=== PATIENT | male | born 1985 | race African-American/Black ===

== ENCOUNTER 2016-05-22 21:14 | Emergency (ER) | payer SELFPAY ==
[2016-05-22 21:23] VITALS: BP 131/59
[2016-05-22] MEDS ORDERED: IV NORMAL SALINE 1000ML BAG 1,000 ML IV ONE (21:45)
[2016-05-22] MEDS ORDERED: DICYCLOMINE HCL 10 MG CAPSULE PO ONE (21:45)
[2016-05-22] MEDS ORDERED: ONDANSETRON PF 4 MG/2 ML VIAL. IV ONE (21:45)
[2016-05-22] MEDS ORDERED: FAMOTIDINE 20 MG/2 ML VIAL IVP ONE (21:45)
[2016-05-22] MEDS ORDERED: MORPHINE SULFATE 10 MG/ML VIAL. IV ONE (21:45)
[2016-05-22 21:46] LABS: BILIRUBIN,URINE SMALL (NEG); GLUCOSE,URINE NEGATIVE (NEG); NITRITE,URINE NEGATIVE (NEG); PROTEIN,URINE NEGATIVE (NEG-TRACE); UROBILINOGEN,URINE 0.2 mg/dL (0.2 mg/dL)
--- NOTE | 2016-05-22 21:53 | PHYS DOC ---
Past Medical History Past Medical History: Other Additional Past Medical Histor: PNEUMOTHORAX Past Surgical History: Other Additional Past Surgical Histo: "Lung closed had a tube."Pt had chest tube 3- 4mos ago,spontaneous pneumo. Alcohol Use: Occasionally Drug Use: Marijuana Adult General Chief Complaint Chief Complaint: ABDOMINAL PAIN HPI HPI Patient is a 30 year old male with history of pneumothorax who presents today with multiple complaints. Patient is complaining of abdominal cramping generalized in nature, nausea vomiting and diarrhea that began this morning. He is also complaining of bilateral low back pain and believes he could have a collapsed lung because the last time he had similar pain he had a collapsed lung that had occurred spontaneously. Patient denies any history of smoking. Denies any injuries. Denies any hematemesis or melena. Denies any fever Review of Systems Review of Systems Constitutional: Denies fever or chills [] Eyes: Denies change in visual acuity, redness, or eye pain [] HENT: Denies nasal congestion or sore throat [] Respiratory: Denies cough or shortness of breath [] Cardiovascular: No additional information not addressed in HPI [] GI: Abdominal cramping, nausea, vomiting,diarrhea [] : Denies dysuria or hematuria [] Musculoskeletal: back pain Integument: Denies rash or skin lesions [] Neurologic: Denies headache, focal weakness or sensory changes [] Endocrine: Denies polyuria or polydipsia [] Current Medications Current Medications Current Medications Medications (Trade) Dose Ordered Sig/Eric Start Time Stop Time Status Last Admin Dose Admin Dicyclomine HCl (Bentyl) 20 mg 1X ONCE 05/22/16 21:45 05/22/16 21:46 DC 05/22/16 22:02 20 MG Famotidine (Pepcid) 20 mg 1X ONCE 05/22/16 21:45 05/22/16 21:46 DC 05/22/16 22:02 20 MG Morphine Sulfate 5 mg 1X ONCE 05/22/16 21:45 05/22/16 21:46 DC 05/22/16 22:34 5 MG Ondansetron HCl (Zofran) 4 mg 1X ONCE 05/22/16 21:45 05/22/16 21:46 DC 05/22/16 22:02 4 MG Sodium Chloride (Iv Sodium Chloride 0.9% 1000ml Bag) 1,000 ml @ 1,000 mls/hr 1X ONCE 05/22/16 21:45 05/22/16 22:44 05/22/16 22:03 1,000 MLS/HR Allergies Allergies Allergies Coded Allergies Type Severity Reaction Last Updated Verified No Known Drug Allergies 09/26/13 No Physical Exam Physical Exam Constitutional: Well developed, well nourished, no acute distress, non-toxic appearance. [] HENT: Normocephalic, atraumatic, bilateral external ears normal, oropharynx moist, no oral exudates, nose normal. [] Eyes: PERRLA, EOMI, conjunctiva normal, no discharge. [] Neck: Normal range of motion, no tenderness, supple, no stridor. [] Cardiovascular:Heart rate regular rhythm, no murmur [] Lungs & Thorax: Bilateral breath sounds clear to auscultation [] Abdomen: Bowel sounds normal, soft, no tenderness, no masses, no pulsatile masses. [] Skin: Warm, dry, no erythema, no rash. [] Back: No tenderness, no CVA tenderness. [] Extremities: No tenderness, no cyanosis, no clubbing, ROM intact, no edema. [] Neurologic: Alert and oriented X 3, normal motor function, normal sensory function, no focal deficits noted. [] Psychologic: Affect normal, judgement normal, mood normal. [] Current Patient Data Vital Signs Vital Signs Date Time Temp Pulse Resp B/P Pulse Ox O2 Delivery O2 Flow Rate FiO2 05/22/16 22:34 16 98 05/22/16 21:23 98.7 102 131/59 Room Air 98.7 Lab Values Laboratory Tests Test 05/22/16 21:29 05/22/16 21:50 Urine Collection Type Unknown Urine Color Dk yellow Urine Clarity Clear Urine pH 6.0 Urine Specific [place] >=1.030 Urine Protein Negativemg/dL (NEG-TRACE) Urine Glucose (UA) Negativemg/dL (NEG) Urine Ketones (Stick) Tracemg/dL (NEG) Urine Blood Negative (NEG) Urine Nitrite Negative (NEG) Urine Bilirubin Small (NEG) Urine Urobilinogen Dipstick 0.2mg/dL (0.2 mg/dL) Urine Leukocyte Esterase Negative (NEG) Urine RBC 0/HPF (0-2) Urine WBC Rare/HPF (0-4) Urine Squamous Epithelial Cells Occ/LPF Urine Bacteria 0/HPF (0-FEW) Urine Mucus Marked/LPF White Blood Count 7.6x10^3/uL (4.0-11.0) Red Blood Count 5.77x10^6/uL (4.30-5.70) H Hemoglobin 16.3g/dL (13.0-17.5) Hematocrit 47.4% (39.0-53.0) Mean Corpuscular Volume 82fL (79-100) Mean Corpuscular Hemoglobin 28pg (25-35) Mean Corpuscular Hemoglobin Concent 34g/dL (31-37) Red Cell Distribution Width 13.4% (11.5-14.5) Platelet Count 304x10^3/uL (140-400) Neutrophils (%) (Auto) 77% (31-73) H Lymphocytes (%) (Auto) 14% (24-48) L Monocytes (%) (Auto) 8% (0-9) Eosinophils (%) (Auto) 0% (0-3) Basophils (%) (Auto) 0% (0-3) Neutrophils # (Auto) 5.8x10^3uL (1.8-7.7) Lymphocytes # (Auto) 1.1x10^3/uL (1.0-4.8) Monocytes # (Auto) 0.6x10^3/uL (0.0-1.1) Eosinophils # (Auto) 0.0x10^3/uL (0.0-0.7) Basophils # (Auto) 0.0x10^3/uL (0.0-0.2) Sodium Level 141mmol/L (136-145) Potassium Level 3.6mmol/L (3.5-5.1) Chloride Level 103mmol/L (98-107) Carbon Dioxide Level 28mmol/L (21-32) Anion Gap 10 (6-14) Blood Urea Nitrogen 17mg/dL (8-26) Creatinine 1.1mg/dL (0.7-1.3) Estimated GFR (Cockcroft-Gault) 95.8 BUN/Creatinine Ratio 15 (6-20) Glucose Level 92mg/dL (70-99) Calcium Level 9.1mg/dL (8.5-10.1) Total Bilirubin 0.7mg/dL (0.2-1.0) Aspartate Amino Transferase (AST) 15U/L (15-37) Alanine Aminotransferase (ALT) 15U/L (16-63) L Alkaline Phosphatase 57U/L (46-116) Total Protein 7.0g/dL (6.4-8.2) Albumin 3.8g/dL (3.4-5.0) Albumin/Globulin Ratio 1.2 (1.0-1.7) Lipase 205U/L (73-393) Laboratory Tests 05/22/16 21:50 Laboratory Tests 05/22/16 21:50 EKG EKG [] Radiology/Procedures Radiology/Procedures [] Course & Med Decision Making Course & Med Decision Making Pertinent Labs and Imaging studies reviewed. (See chart for details) This is a 30-year-old male patient who presents today with nausea vomiting and diarrhea as well as bilateral low back pain. Patient was also, concerned he could have a collapsed lung because last time he had low back pain his lung had collapsed spontaneously. CBC CMP lipase with no acute findings. Urine analysis with no acute findings. Chest x-ray interpreted by Dr. Finley is negative for any acute findings. Reassured patient his lungs have not collapsed. Patient's nausea vomiting and diarrhea are probably viral. Discharged with promethazine and dicyclomine. Instructed to push fluids maintain good hand hygiene, provided return precautions. F/u with his doctor in one week. Dragon Disclaimer Dragon Disclaimer This electronic medical record was generated, in whole or in part, using a voice recognition dictation system. Departure Departure Impression: Primary Impression: Nausea and vomiting Additional Impressions: Diarrhea Low back pain Disposition: 01 HOME, SELF-CARE Condition: STABLE Referrals: NO PCP (PCP) Follow-up with your own doctor in 1-2 weeks Patient Instructions: Diarrhea, Nausea and Vomiting, [id number] Additional Instructions: You were seen for bilateral low back pain, nausea vomiting and diarrhea with abdominal cramping. Typically this is a viral illness. It runs his own calls. We give you medicines to help with the symptoms. Take the nausea medicine as needed. Maintain good hand hygiene. Push fluids. Come back to the ER if symptoms worsen. Scripts Promethazine Hcl 25 Mg Tablet1 Tab PO PRN Q6HRS #20 TAB Prov:MUTUNGA,SARA CUT OFF SAWYER LOG 05/22/16 Dicyclomine Hcl 20 Mg Tablet1 Tab PO TID #30 TAB Ref 1 Prov:SARA TEAGUE NIA 05/22/16 Problem Qualifiers Primary Impression: Nausea and vomiting Vomiting type: unspecified Vomiting Intractability: non-intractable Qualified Code: R11.2 - Nausea with vomiting, unspecified Additional Impressions: Diarrhea Diarrhea type: unspecified type Qualified Code: R19.7 - Diarrhea, unspecified Low back pain Chronicity: acute Back pain laterality: bilateral Sciatica presence: without sciatica Qualified Code: M54.5 - Low back pain SARA TEAGUE CUT OFF SAWYER LOG May 22, 2016 21:54
[2016-05-22 21:59] LABS: BACTERIA,URINE 0 /HPF (0-FEW); RBC,URINE 0 /HPF (0-2); SQUAMOUS EPITHELIAL CELL,UR OCC /LPF; WBC,URINE RARE /HPF (0-4)
[2016-05-22 22:06] LABS: BASO % 0 % (0-3); EOS % 0 % (0-3); HEMATOCRIT 47.4 % (39.0-53.0); HEMOGLOBIN 16.3 g/dL (13.0-17.5); LYMPH # 1.1 x10^3/uL (1.0-4.8); LYMPH % 14 % (24-48); MEAN CORPUSCULAR HEMOGLOBIN 28 pg (25-35); MEAN CORPUSCULAR HGB CONC 34 g/dL (31-37); MEAN CORPUSCULAR VOLUME 82 fL (79-100); MONO % 8 % (0-9); NEUT % 77 % (31-73); PLATELET COUNT 304 x10^3/uL (140-400); RED BLOOD COUNT 5.77 x10^6/uL (4.30-5.70); RED CELL DISTRIBUTION WIDTH 13.4 % (11.5-14.5); WHITE BLOOD COUNT 7.6 x10^3/uL (4.0-11.0)
[2016-05-22 22:15] LABS: CALCIUM 9.1 mg/dL (8.5-10.1); CREATININE 1.1 mg/dL (0.7-1.3); GFR 95.8; POTASSIUM 3.6 mmol/L (3.5-5.1)
[2016-05-22 22:21] LABS: ALBUMIN 3.8 g/dL (3.4-5.0); ALBUMIN/GLOBULIN RATIO 1.2 (1.0-1.7); TOTAL BILIRUBIN 0.7 mg/dL (0.2-1.0)
[2016-05-22] MEDS ORDERED: PROM25TA10 PO (22:27)
[2016-05-22] MEDS ORDERED: DICY20TA3 PO (22:27)
--- NOTE | 2016-05-23 08:06 | RAD ---
Chest, 2 views, 05/22/2016: History: Chest pain, low back pain Comparison is made to a study from 09/06/2014. The heart size is normal. A minimal linear opacity projected over the anterior aspect of the heart on lateral view suggests scarring in the right middle lobe. No pulmonary consolidation is seen. There is no evidence of pleural fluid or pneumothorax. IMPRESSION: No acute cardiopulmonary abnormality is detected.
== END 2016-05-22 22:52 | disposition home or self-care (01) ==
LOC: ER 21:14
DX: R11.2 Nausea with vomiting, unspecified (principal); R19.7 Diarrhea, unspecified; M54.5 Low back pain; R10.84 Generalized abdominal pain; F12.10 Cannabis abuse, uncomplicated
CPT/HCPCS: 36415; 71020; 80053; 81001; 83690; 85027; 96361; 96374; 96375; 99285; J2270; J2405; J7030; S0028

== ENCOUNTER 2016-07-13 17:35 | Emergency (ER) | payer SELFPAY ==
[~2016-07-13] VITALS: Ht 180.3 cm; Wt 72.6 kg
[~2016-07-13 17:35] MED LIST: DICY20TA3 PO; PROM25TA10 PO
[2016-07-13 18:30] VITALS: BP 137/86
[2016-07-13] MEDS ORDERED: HYDR25CA PO (18:46)
--- NOTE | 2016-07-13 18:46 | PHYS DOC ---
Past Medical History Past Medical History: Other Additional Past Medical Histor: PNEUMOTHORAX Past Surgical History: Other Additional Past Surgical Histo: Chest tube Alcohol Use: Occasionally Drug Use: Marijuana Adult General Chief Complaint Chief Complaint: CHEST WALL PAIN HPI HPI Patient is a 30 year old male who presents with more than 1 week of intermittent anxiety, chest pain, dyspnea, and unwell feeling. Also notes intermittent tightness and pain in his shoulders and neck. He is undergoing multiple psychosocial stressors recently. States he had symptoms prior to arrival prompting his visit today. He is currently asymptomatic. He denies headache, vision changes, cough, hemoptysis, leg pain or swelling, dizziness, numbness, tingling, weakness. Review of Systems Review of Systems Constitutional: Denies fever or chills [] Eyes: Denies change in visual acuity, redness, or eye pain [] HENT: Denies nasal congestion or sore throat [] Respiratory: Denies cough or shortness of breath [] Cardiovascular: No additional information not addressed in HPI [] GI: Denies abdominal pain, nausea, vomiting, bloody stools or diarrhea [] : Denies dysuria or hematuria [] Musculoskeletal: Denies back pain or joint pain [] Integument: Denies rash or skin lesions [] Neurologic: Denies headache, focal weakness or sensory changes [] Endocrine: Denies polyuria or polydipsia [] Allergies Allergies Allergies Coded Allergies Type Severity Reaction Last Updated Verified No Known Drug Allergies 09/26/13 No Physical Exam Physical Exam Constitutional: Well developed, well nourished, no acute distress, non-toxic appearance. [] HENT: Normocephalic, atraumatic, bilateral external ears normal, oropharynx moist, no oral exudates, nose normal. [] Eyes: PERRLA, EOMI, conjunctiva normal, no discharge. [] Neck: Normal range of motion, no tenderness, supple. [] Cardiovascular:Heart rate regular rhythm [] Lungs & Thorax: Bilateral breath sounds clear to auscultation [] Abdomen: Bowel sounds normal, soft, no tenderness. [] Skin: Warm, dry, no erythema, no rash. [] Back: No tenderness, no CVA tenderness. [] Extremities: ROM intact, no edema. [] Neurologic: Alert and oriented X 3, normal motor function, normal sensory function, no focal deficits noted. [] Psychologic: Affect normal, judgement normal, mood normal. [] Current Patient Data Vital Signs Vital Signs Date Time Temp Pulse Resp B/P Pulse Ox O2 Delivery O2 Flow Rate FiO2 07/13/16 18:30 90 18 137/86 98 Room Air 07/13/16 17:58 98.5 98.5 EKG EKG EKG as interpreted by me as normal sinus rhythm, rate 74, no ST-T changes, normal intervals, no ectopy Course & Med Decision Making Course & Med Decision Making Pertinent Labs and Imaging studies reviewed. (See chart for details) Appears well on exam. History concerning for panic disorder. Discussed symptomatic care and encouraged primary care and psychiatry follow-up. Return precautions given. He understands and agrees with plan. Dragon Disclaimer Dragon Disclaimer This electronic medical record was generated, in whole or in part, using a voice recognition dictation system. Departure Departure Impression: Primary Impression: Panic disorder Disposition: HOME, SELF-CARE Condition: STABLE Referrals: NO PCP (PCP) Patient Instructions: Anxiety and Panic Attacks, [id number] Additional Instructions: Take vistaril as needed for anxiety. Follow up with your primary care doctor. Return for any concerns. Scripts Hydroxyzine Pamoate (Vistaril)25 Mg Capsule1 Cap PO TID PRN ANXIETY #30 CAP Ref 0 Prov:Edith LOCKE MD 07/13/16 Edith LOCKE MD Jul 13, 2016 18:46
--- NOTE | 2016-07-14 06:30 | EKG ---
[facility] [address] [place] [address] Test Date: 2016-07-13 Test Time: 17:49:46 Pat Name: ELENA RHODES Department: Room: Gender: M Psych Assistant: : 1985 Requested By: Edith LOCKE Order Number: [id number] Reading MD: Measurements Intervals [place] Rate: 74 P: 67 [place]: 152 QRS: 70 QRSD: 70 T: 54 QT: 360 QTc: 400 Interpretive Statements SINUS RHYTHM T ABNORMALITY IN ANTERIOR LEADS RI6.01 Unconfirmed report No previous ECG available for comparison
== END 2016-07-13 18:55 | disposition home or self-care (01) ==
LOC: ER 17:35
DX: F41.0 Panic disorder [episodic paroxysmal anxiety] (principal); R07.9 Chest pain, unspecified; R06.00 Dyspnea, unspecified; M25.512 Pain in left shoulder; M25.511 Pain in right shoulder; M54.2 Cervicalgia; F12.10 Cannabis abuse, uncomplicated
CPT/HCPCS: 93005; 99283-25

== ENCOUNTER 2016-09-05 00:15 | Emergency (ER) | payer SELFPAY ==
[~2016-09-05] VITALS: Ht 180.3 cm; Wt 72.6 kg
[~2016-09-05 00:15] MED LIST changes: +HYDR25CA PO
[2016-09-05 00:34] VITALS: BP 123/83
[2016-09-05] MEDS ORDERED: TRAM-29 PO (00:37)
[2016-09-05] MEDS ORDERED: CYCL10TA2 PO (00:37)
--- NOTE | 2016-09-05 00:38 | PHYS DOC ---
Past Medical History Past Medical History: Other Additional Past Medical Histor: PNEUMOTHORAX Past Surgical History: Other Additional Past Surgical Histo: Chest tube Alcohol Use: None Drug Use: None, Marijuana Adult General Chief Complaint Chief Complaint: BACK PAIN OR INJURY HPI HPI Patient is a 31 year old male presents emergency department with a family member. Patient states that he was at work and trying to finish upset he can go home when he did not used a forklift to move a 900 pound pole. He states that he tried to lift the pole up and felt a pull in his right lower back. He states that the pain was a sharp pain that radiated down into his but. Patient denies any loss of bowel or bladder. Patient denies any numbness or tingling down to his lower extremities. He does state that he has having some pain on the spinal area. He denies any further symptoms at this time. He has not taken any pain medication. Review of Systems Review of Systems Constitutional: Denies fever or chills [] Eyes: Denies change in visual acuity, redness, or eye pain [] HENT: Denies nasal congestion or sore throat [] Respiratory: Denies cough or shortness of breath [] Cardiovascular: No additional information not addressed in HPI [] GI: Denies abdominal pain, nausea, vomiting, bloody stools or diarrhea [] : Denies dysuria or hematuria [] Musculoskeletal: low back pain denies joint pain Integument: Denies rash or skin lesions [] Neurologic: Denies headache, focal weakness or sensory changes [] Current Medications Current Medications Current Medications Medications (Trade) Dose Ordered Sig/Eric Start Time Stop Time Status Last Admin Dose Admin Acetaminophen/ Hydrocodone Bitart (Lortab 5/325) 1 tab 1X ONCE 09/05/16 01:00 09/05/16 01:01 Cyclobenzaprine HCl (Flexeril) 10 mg 1X ONCE 09/05/16 01:00 09/05/16 01:01 Ibuprofen (Motrin) 800 mg 1X ONCE 09/05/16 01:00 09/05/16 01:01 Allergies Allergies Allergies Coded Allergies Type Severity Reaction Last Updated Verified No Known Drug Allergies 09/26/13 No Physical Exam Physical Exam Constitutional: Well developed, well nourished, no acute distress, non-toxic appearance. [] HENT: Normocephalic, atraumatic, bilateral external ears normal, oropharynx moist, no oral exudates, nose normal. [] Eyes: PERRLA, EOMI, conjunctiva normal, no discharge. [] Neck: Normal range of motion, no tenderness, supple, no stridor. [] Cardiovascular:Heart rate regular rhythm, no murmur [] Lungs & Thorax: Bilateral breath sounds clear to auscultation [] Skin: Warm, dry, no erythema, no rash. [] Back: No thoracic spine tenderness, step-offs no deformities no crepitus noted. Patient did have tenderness in the lumbar spine area. As well as tenderness noted on the right paraspinal areas. No step-offs no deformities and no crepitus noted. No CVA tenderness. [] Extremities: No tenderness, no cyanosis, no clubbing, ROM intact, no edema. Peripheral pulses 2+ cap refill brisk less than 2 seconds. Patient was able to ambulate with a good steady gait into the emergency department. Neurologic: Alert and oriented X 3, normal motor function, normal sensory function, no focal deficits noted. [] Psychologic: Affect normal, judgement normal, mood normal. [] Current Patient Data Vital Signs Vital Signs Date Time Temp Pulse Resp B/P Pulse Ox O2 Delivery O2 Flow Rate FiO2 09/05/16 00:34 98.5 55 16 98 Room Air 98.5 EKG EKG [] Radiology/Procedures Radiology/Procedures [] Course & Med Decision Making Course & Med Decision Making Pertinent Labs and Imaging studies reviewed. (See chart for details) Lumbar spine x-rays were negative per Dr. Fontana. Patient will be provided with Flexeril to take upon discharge. He was instructed this medication will cause drowsiness do not take any be alert and oriented. Also recommended ibuprofen 800 mg every 8 hours with food stop taking few develop an upset stomach. Patient will also be provided with Ultram to take at home for severe pain and discomfort. Patient will be discharged home in stable condition signs and symptoms to return back to the emergency department as been provided. Recommended patient follow-up with primary care physician in the next 7-10 days. [] Dragon Disclaimer Dragon Disclaimer This electronic medical record was generated, in whole or in part, using a voice recognition dictation system. Departure Departure Impression: Primary Impression: Low back pain Disposition: HOME, SELF-CARE Condition: STABLE Referrals: NO PCP (PCP) Patient Instructions: Back Pain, Adult, [id number] Additional Instructions: Lumbar spine x-rays were negative for any bony abnormalities. Activity as tolerated. Medication as prescribed. Flexeril will cause drowsiness do not take any be alert and oriented. Ibuprofen 800 mg every 8 hours. This medication needs to be taken with food. If he did develop an upset stomach stopped taking. Ice packs on 20 minutes off 20 minutes several times a day. Follow-up to primary care physician in the next 7-10 days. Return back to emergency prior signs symptoms that become worse. Scripts Tramadol Hcl (Ultram)50 Mg Tablet1 Tab PO Q6HRS #15 TAB Prov:PRINCESS JASON APRN 09/05/16 Cyclobenzaprine Hcl 10 Mg [id number] Mg PO TID #30 TAB Prov:PRINCESS JASON APRN 09/05/16 PRINCESS JASON APRN September 05, 2016 00:38
[2016-09-05] MEDS ORDERED: IBUPROFEN 800 MG TABLET. PO ONE (01:00)
[2016-09-05] MEDS ORDERED: CYCLOBENZAPRINE 10 MG TABLET. PO ONE (01:00)
[2016-09-05] MEDS ORDERED: HYDROCODONE/APAP 5/325MG TABLET. PO ONE (01:00)
--- NOTE | 2016-09-05 07:41 | RAD ---
Indication low back pain. AP and lateral views of the lumbar spine were obtained as well as a coned view targeted to the lumbosacral junction. Vertebral height alignment and disc spaces are normal. No acute finding is seen. There are no significant degenerative changes. IMPRESSION: Normal plain films of the lumbar spine
== END 2016-09-05 01:05 | disposition home or self-care (01) ==
LOC: ER 00:15
DX: M54.5 Low back pain (principal); F12.10 Cannabis abuse, uncomplicated; X58.XXXA Exposure to other specified factors, initial encounter; Y93.89 Activity, other specified; Y92.89 Other specified places as the place of occurrence of the external cause; Y99.8 Other external cause status
CPT/HCPCS: 72100; 99284

== ENCOUNTER 2016-11-24 12:50 | Emergency (ER) | payer OTHER ==
[~2016-11-24] VITALS: Ht 180.3 cm; Wt 77.1 kg
[~2016-11-24 12:50] MED LIST changes: +CYCL10TA2 PO; +TRAM-48 PO
--- NOTE | 2016-11-24 13:06 | PHYS DOC ---
Past Medical History Past Medical History: Other Additional Past Medical Histor: PNEUMOTHORAX Past Surgical History: Other Additional Past Surgical Histo: Chest tube Alcohol Use: None Drug Use: None, Marijuana Adult General Chief Complaint Chief Complaint: SHORTNESS OF BREATH HPI HPI Patient is a 31 year old -[place] male who presents with short of breath. He states his been going on ever since he had his pneumothorax several years ago where he gets his heavy sensation on the right side of his chest and feel short of breath. He started around 8:00 this morning. He states he slightly overdid it yesterday felt maybe he's dehydrated and push fluids this morning but is not helping so he decided to come the ER to make sure that his pneumothorax hasn't returned. He denies any fevers chills or productive cough. He is unsure if he was wheezing. 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 He denies smoking. He states his sensation is just a heaviness over his right chest he denies actual pain, nausea, diaphoresis. Review of Systems Review of Systems Constitutional: Denies fever or chills [] Eyes: Denies change in visual acuity, redness, or eye pain [] HENT: Denies nasal congestion or sore throat [] Respiratory: Denies cough or shortness of breath [] Cardiovascular: No additional information not addressed in HPI [] GI: Denies abdominal pain, nausea, vomiting, bloody stools or diarrhea [] : Denies dysuria or hematuria [] Musculoskeletal: Denies back pain or joint pain [] Integument: Denies rash or skin lesions [] Neurologic: Denies headache, focal weakness or sensory changes [] Endocrine: Denies polyuria or polydipsia [] Current Medications Current Medications Current Medications Medications (Trade) Dose Ordered Sig/Eric Start Time Stop Time Status Last Admin Dose Admin Albuterol/ Ipratropium (Duoneb) 3 ml 1X ONCE 11/24/16 13:30 11/24/16 13:31 DC 11/24/16 13:41 3 ML Allergies Allergies Allergies Coded Allergies Type Severity Reaction Last Updated Verified No Known Drug Allergies 09/26/13 No Physical Exam Physical Exam Constitutional: Well developed, well nourished, no acute distress, non-toxic appearance. [] HENT: Normocephalic, atraumatic, bilateral external ears normal, oropharynx moist, no oral exudates, nose normal. [] Eyes: PERRLA, EOMI, conjunctiva normal, no discharge. [] Neck: Normal range of motion, no tenderness, supple, no stridor. [] Cardiovascular:Heart rate regular rhythm, no murmur [] Lungs & Thorax: Bilateral breath sounds decreased bilaterally Abdomen: Bowel sounds normal, soft, no tenderness, no masses, no pulsatile masses. [] Skin: Warm, dry, no erythema, no rash. [] Back: No tenderness, no CVA tenderness. [] Extremities: No tenderness, no cyanosis, no clubbing, ROM intact, no edema. [] Neurologic: Alert and oriented X 3, normal motor function, normal sensory function, no focal deficits noted. [] Psychologic: Affect normal, judgement normal, mood normal. [] Current Patient Data Vital Signs Vital Signs Date Time Temp Pulse Resp B/P (MAP) Pulse Ox O2 Delivery O2 Flow Rate FiO2 11/24/16 13:43 100 Room Air 11/24/16 13:01 98.5 93 20 137/83 (101) 98.5 Lab Values Laboratory Tests Test 11/24/16 13:27 White Blood Count 6.7 x10^3/uL (4.0-11.0) Red Blood Count 5.43 x10^6/uL (4.30-5.70) Hemoglobin 15.6 g/dL (13.0-17.5) Hematocrit 46.4 % (39.0-53.0) Mean Corpuscular Volume 85 fL (79-100) Mean Corpuscular Hemoglobin 29 pg (25-35) Mean Corpuscular Hemoglobin Concent 34 g/dL (31-37) Red Cell Distribution Width 13.4 % (11.5-14.5) Platelet Count 337 x10^3/uL (140-400) Neutrophils (%) (Auto) 56 % (31-73) Lymphocytes (%) (Auto) 34 % (24-48) Monocytes (%) (Auto) 8 % (0-9) Eosinophils (%) (Auto) 1 % (0-3) Basophils (%) (Auto) 1 % (0-3) Neutrophils # (Auto) 3.8 x10^3uL (1.8-7.7) Lymphocytes # (Auto) 2.3 x10^3/uL (1.0-4.8) Monocytes # (Auto) 0.5 x10^3/uL (0.0-1.1) Eosinophils # (Auto) 0.0 x10^3/uL (0.0-0.7) Basophils # (Auto) 0.1 x10^3/uL (0.0-0.2) Sodium Level 143 mmol/L (136-145) Potassium Level 4.0 mmol/L (3.5-5.1) Chloride Level 105 mmol/L (98-107) Carbon Dioxide Level 30 mmol/L (21-32) Anion Gap 8 (6-14) Blood Urea Nitrogen 14 mg/dL (8-26) Creatinine 1.1 mg/dL (0.7-1.3) Estimated GFR (Cockcroft-Gault) 95.1 BUN/Creatinine Ratio 13 (6-20) Glucose Level 95 mg/dL (70-99) Calcium Level 8.6 mg/dL (8.5-10.1) Total Bilirubin 0.5 mg/dL (0.2-1.0) Aspartate Amino Transferase (AST) 16 U/L (15-37) Alanine Aminotransferase (ALT) 18 U/L (16-63) Alkaline Phosphatase 57 U/L (46-116) Creatine Kinase 142 U/L (39-308) Creatine Kinase MB (Mass) 0.6 ng/mL (0.0-3.6) Creatine Kinase MB Relative Index 0.4 % (0-4) Troponin I Quantitative < 0.017 ng/mL (0.000-0.055) Total Protein 7.0 g/dL (6.4-8.2) Albumin 4.0 g/dL (3.4-5.0) Albumin/Globulin Ratio 1.3 (1.0-1.7) Laboratory Tests 11/24/16 13:27 Laboratory Tests 11/24/16 13:27 EKG EKG EKG shows sinus rhythm with rate of 63 bpm, ST elevations in V2 V3, T-wave inversions in V4, normal axis, QTC 355 ms, as interpreted by me. EKG looks similar to one performed on July 13, 2016 with elevations in V2 and T-wave inversions in V3, V4 Radiology/Procedures Radiology/Procedures [facility] [address] [place] [address] IMAGING REPORT Signed PATIENT: ELENA RHODES ACCOUNT: [id number] : 1985 LOCATION: ER AGE: 31 SEX: M EXAM STATUS: REG ER ORD. PHYSICIAN: HARRISON ALLEN MD REASON: soa PROCEDURE: CHEST AP ONLY Elena Rhodes 11/24/2016. Chest x-ray. Time: 1314 A single view of the chest was obtained. Comparison is made to an examination May 22, 2016. Indication shortness of right-sided chest pain. The heart and pulmonary vessels appear normal. The mediastinum has a normal appearance. The lungs are clear. A significant change when compared to the previous exam is not seen. IMPRESSION: No acute or focal process is seen in the chest DICTATED and SIGNED BY: SUMI MURDOCK MD DATE: 11/24/16 1336 CC: HARRISON ALLEN MD; NO PCP ~ Impressions: Short of breath Course & Med Decision Making Course & Med Decision Making Pertinent Labs and Imaging studies reviewed. (See chart for details) Chest x-ray, labs, EKG all nonacute. Patient received a DuoNeb and felt better. He is being discharged with albuterol when necessary. Return precautions given. He is to follow-up with primary care, list is been provided. He is agreeable to the plan and being discharged in stable condition at this time. Dragon Disclaimer Dragon Disclaimer This electronic medical record was generated, in whole or in part, using a voice recognition dictation system. Departure Departure Impression: Primary Impression: Dyspnea Disposition: 01 HOME, SELF-CARE Condition: STABLE Referrals: NO PCP (PCP) Patient Instructions: Shortness of Breath Additional Instructions: The chest x-ray did not show that he had a pneumothorax, collapsed lung, pneumonia or other issues. Your EKG and blood work also was within normal limits. He felt better after received a breathing treatment. Your being discharged home with an albuterol inhaler. He can use 2 puffs every 3-4 hours as needed for shortness of breath or wheezing. You will need to follow-up with primary care physician. Return ER for fevers, productive cough, shortness of breath, or other concerns. Scripts Albuterol Sulfate (VENTOLIN HFA INHALER) 18 Gm Hfa.aer.ad 2 PUFF INH Q4HRS Y for SHORTNESS OF BREATH, #1 INHALER 0 Refills Prov: HARRISON ALLEN MD 11/24/16 Problem Qualifiers Primary Impression: Dyspnea Dyspnea type: unspecified Qualified Codes: R06.00 - Dyspnea, unspecified HARRISON ALLEN MD Nov 24, 2016 13:06
[2016-11-24] MEDS ORDERED: IPRATRPIUM/ALBUTEROL 0.5/2.5MG 3 ML NEBU. NEB ONE (13:30)
[2016-11-24 13:40] LABS: BASO # 0.1 x10^3/uL (0.0-0.2); BASO % 1 % (0-3); EOS % 1 % (0-3); HEMATOCRIT 46.4 % (39.0-53.0); HEMOGLOBIN 15.6 g/dL (13.0-17.5); LYMPH # 2.3 x10^3/uL (1.0-4.8); LYMPH % 34 % (24-48); MEAN CORPUSCULAR HEMOGLOBIN 29 pg (25-35); MEAN CORPUSCULAR HGB CONC 34 g/dL (31-37); MEAN CORPUSCULAR VOLUME 85 fL (79-100); MONO % 8 % (0-9); NEUT % 56 % (31-73); PLATELET COUNT 337 x10^3/uL (140-400); RED BLOOD COUNT 5.43 x10^6/uL (4.30-5.70); RED CELL DISTRIBUTION WIDTH 13.4 % (11.5-14.5); WHITE BLOOD COUNT 6.7 x10^3/uL (4.0-11.0)
[2016-11-24 13:47] LABS: CALCIUM 8.6 mg/dL (8.5-10.1); CREATININE 1.1 mg/dL (0.7-1.3); GFR 95.1
[2016-11-24 13:54] LABS: ALBUMIN/GLOBULIN RATIO 1.3 (1.0-1.7); TOTAL BILIRUBIN 0.5 mg/dL (0.2-1.0)
--- NOTE | 2016-11-24 13:58 | RAD ---
Josh Lee 11/24/2016. Chest x-ray. Time: 1314 A single view of the chest was obtained. Comparison is made to an examination May 22, 2016. Indication shortness of right-sided chest pain. The heart and pulmonary vessels appear normal. The mediastinum has a normal appearance. The lungs are clear. A significant change when compared to the previous exam is not seen. IMPRESSION: No acute or focal process is seen in the chest
[2016-11-24 14:01] LABS: CKMB MASS 0.6 ng/mL (0.0-3.6)
[2016-11-24] MEDS ORDERED: VENTOLIN HFA18 GM INH (14:36)
[2016-11-24 14:41] VITALS: BP 148/71
--- NOTE | 2016-11-24 15:24 | EKG ---
[facility] [address] [place] [address] Test Date: 2016-11-24 Test Time: 13:04:25 Pat Name: ELENA RHODES Department: Room: Gender: M Certified Drug Counselor: : 1985 Requested By: HARRISON ALLEN Order Number: [id number] Reading MD: Measurements Intervals [place] Rate: 63 P: 67 [place]: 152 QRS: 73 QRSD: 82 T: 38 QT: 344 QTc: 355 Interpretive Statements SINUS RHYTHM QRS(T) CONTOUR ABNORMALITY CONSISTENT WITH ANTEROSEPTAL INFARCT PROBABLY OLD T ABNORMALITY IN ANTERIOR LEADS RI6.01 Unconfirmed report No previous ECG available for comparison
== END 2016-11-24 14:46 | disposition home or self-care (01) ==
LOC: ER 12:50
DX: R06.00 Dyspnea, unspecified (principal); F12.10 Cannabis abuse, uncomplicated
CPT/HCPCS: 36415; 71010; 80053; 82553; 84484; 85027; 93005; 94250; 94640; 99285; J7620

== ENCOUNTER 2017-09-21 10:27 | Emergency (ER) | payer SELFPAY, OTHER ==
[2017-09-21] MEDS: IV NORMAL SALINE 1000ML BAG 1,000 ML IV (11:30)
[2017-09-21 11:39] LABS: ADD MAN DIFF? NO
[2017-09-21 11:59] LABS: ANION GAP 5 (6-14); BLOOD UREA NITROGEN 18 mg/dL (8-26); BUN/CREATININE RATIO 15 (6-20); CALCIUM 8.8 mg/dL (8.5-10.1); CARBON DIOXIDE 32 mmol/L (21-32); CHLORIDE 105 mmol/L (98-107); CREATININE 1.2 mg/dL (0.7-1.3); GFR 85.4; GLUCOSE 90 mg/dL (70-99); POTASSIUM 4.2 mmol/L (3.5-5.1); SODIUM 142 mmol/L (136-145)
[2017-09-21 12:04] LABS: ALBUMIN 3.9 g/dL (3.4-5.0); ALBUMIN/GLOBULIN RATIO 1.1 (1.0-1.7); ALK PHOS 67 U/L (46-116); ALT (SGPT) 18 U/L (16-63); AST (SGOT) 19 U/L (15-37); TOTAL BILIRUBIN 0.7 mg/dL (0.2-1.0); TOTAL PROTEIN 7.5 g/dL (6.4-8.2)
[2017-09-21 12:06] LABS: BASO % 1 % (0-3); EOS % 1 % (0-3); HEMATOCRIT 47.7 % (39.0-53.0); HEMOGLOBIN 16.3 g/dL (13.0-17.5); LYMPH # 2.2 x10^3/uL (1.0-4.8); LYMPH % 46 % (24-48); MEAN CORPUSCULAR HEMOGLOBIN 29 pg (25-35); MEAN CORPUSCULAR HGB CONC 34 g/dL (31-37); MEAN CORPUSCULAR VOLUME 85 fL (79-100); MONO # 0.5 x10^3/uL (0.0-1.1); MONO % 11 % (0-9); NEUT % 42 % (31-73); PLATELET COUNT 359 x10^3/uL (140-400); RED BLOOD COUNT 5.63 x10^6/uL (4.30-5.70); RED CELL DISTRIBUTION WIDTH 13.5 % (11.5-14.5); WHITE BLOOD COUNT 4.8 x10^3/uL (4.0-11.0)
[2017-09-21] MEDS: KETOROLAC 30 MG/ML INJ. IV (12:30)
== END 2017-09-21 12:53 | disposition home or self-care (01) ==
LOC: ER 10:27
DX: R51 Headache (principal); M54.2 Cervicalgia; F12.10 Cannabis abuse, uncomplicated
CPT/HCPCS: 36415; 70450; 80053; 85025; 96374; 99285-25; J1885; J7030